=== PATIENT | male | born 1995 | race Caucasian/White ===

== ENCOUNTER 2025-09-13 00:34 | Emergency (ER) | payer SELFPAY ==
[~2025-09-13] VITALS: Ht 177.8 cm; Wt 79.8 kg
[2025-09-13 01:27] LABS: PLATELET COUNT (AUTO) 180 K/uL (150-450); RED BLOOD CELL COUNT(AUTO) 5.82 MIL/uL (4.5-6.0); RED CELL DISTRIBUTION WIDTH 13.9 % (11.5-15.0); WHITE BLOOD COUNT (AUTO) 7.3 K/uL (4.3-11.0)
[2025-09-13 01:37] LABS: CALCIUM, SERUM 9.2 mg/dL (8.5-10.1); CREATININE 1.0 mg/dL (0.6-1.3); SODIUM SERUM 146 mmol/L (136-145); UREA NITROGEN, BLOOD 11 mg/dL (7-18)
[2025-09-13 04:58] VITALS: BP 130/91; TEMP 98.8; O2SAT 98
== END 2025-09-13 04:59 | disposition home or self-care (01) ==
LOC: ER 00:40
DX: R00.2 Palpitations (principal); I51.9 Heart disease, unspecified; Z60.2 Problems related to living alone; Z86.79 Personal history of other diseases of the circulatory system; Z53.29 Procedure and treatment not carried out because of patient's decision for other reasons
CPT/HCPCS: 36415; 71045-TC; 80048-TC; 84484-TC; 85025-TC